=== PATIENT | female | born 1955 | race Caucasian/White ===

== ENCOUNTER → 2021-02-21 | Outpatient (REF) | payer MEDICARE, OTHER | LOC: M LAB REF 13:51 | PROVIDERS: ATTEND Physician Assistant | DX: D22.9 Melanocytic nevi, unspecified (principal) ==

== ENCOUNTER → 2021-08-28 | Outpatient (CLI) | payer MEDICARE, OTHER, BC ==
[~2021-08-28] MED LIST: CALC600C3 PO; ECOT81TA5 PO; OMEGCAP4 PO; PRAV40TA2 PO; RA M500C PO; SUPETAB44 PO; TIZA2CAP PO; TIZA2TA PO; TUME1CAP PO; VITA-243 PO
== END ==
LOC: M LABSMTC 10:57
PROVIDERS: ATTEND Anesthesiology
DX: Z01.818 Encounter for other preprocedural examination (principal); Z11.52 Encounter for screening for COVID-19

== ENCOUNTER 2021-09-02 10:48 | Day surgery (SDC) | payer MEDICARE, OTHER ==
[~2021-09-02] VITALS: Ht 154.9 cm; Wt 91.6 kg
[~2021-09-02 10:48] MED LIST changes: +NS 1,000 ML IV ONE
[2021-09-02] MEDS ORDERED: LIDOCAINE 2% 100MG/5ML SDV (FOR ANES.) As Ordered ONE (12:11)
[2021-09-02] MEDS ORDERED: propofoL 200 MG/20 ML VIAL As Ordered ONE ×2 (12:11→12:15)
[2021-09-02 13:00] VITALS: BP 123/78
== END 2021-09-02 13:11 | disposition home or self-care (01) ==
LOC: M OPP 10:48
PROVIDERS: ATTEND Internal Medicine Gastroenterology
DX: Z12.11 Encounter for screening for malignant neoplasm of colon (principal); K63.5 Polyp of colon; K64.8 Other hemorrhoids; Z79.82 Long term (current) use of aspirin; Z79.899 Other long term (current) drug therapy; Z88.1 Allergy status to other antibiotic agents; Z88.8 Allergy status to other drugs, medicaments and biological substances